=== PATIENT | female | born 2000 | race Caucasian/White ===

== ENCOUNTER 2024-03-03 22:34 | Emergency (ER) | payer SELFPAY ==
[~2024-03-03] VITALS: Ht 157.5 cm; Wt 54.0 kg
[2024-03-03 22:36] VITALS: BP 128/72; TEMP 98.4; O2SAT 98
[2024-03-03 22:38] VITALS: PULSE 100; RESP 16; O2SAT 96
== END 2024-03-03 23:59 | disposition left against medical advice (07) ==
LOC: ER 22:34
DX: G43.909 Migraine, unspecified, not intractable, without status migrainosus (principal); Z53.21 Procedure and treatment not carried out due to patient leaving prior to being seen by health care provider